=== PATIENT | female | born 1960 | race Caucasian/White ===

== ENCOUNTER → 2021-10-16 | Outpatient (CLI) | payer OTHER ==
[~2021-10-16] MED LIST: CALCIUM 500 +1 EAC5 PO; DICLOFENAC SODI75 MG PO; GABAPENTIN300 MG PO; HYDROCHLOROTHIA25 MG PO; HYDROCODON-ACE1 EAC2 PO; LISINOPRIL20 MG PO; LOPRESSOR 25 MG25 MG PO; OMEPRAZOLE40 MG PO; PREDNISONE5 MG PO; ZYRTEC10 MG PO
== END ==
LOC: HEART 5 15:00
DX: J44.9 Chronic obstructive pulmonary disease, unspecified (principal)
CPT/HCPCS: 94060; 94729

== ENCOUNTER 2021-10-26 22:13 | Emergency (ER) | payer OTHER ==
[2021-10-26 23:53] LABS: HEMOGLOBIN 13.5 gm/dl (12.3-15.3); RED BLOOD COUNT 4.38 M/UL (4.00-5.10); WHITE BLOOD COUNT 15.5 K/UL (4.5-11.0)
[2021-10-27 00:13] LABS: BUN/CREATININE RATIO 15 (0-10)
[2021-10-27] MEDS ORDERED: IBUPROFEN600 MG PO (02:05)
[2021-10-27] MEDS ORDERED: ZOFRAN ODT 4 MG4 MG PO (02:05)
[2021-10-27] MEDS ORDERED: PERCOCET 5/325 T1 EA PO (02:13)
== END 2021-10-27 02:47 | disposition home or self-care (01) ==
LOC: ER1 22:13
PROVIDERS: Physician Assistant
DX: S82.851A Displaced trimalleolar fracture of right lower leg, initial encounter for closed fracture (principal); I11.9 Hypertensive heart disease without heart failure; E11.9 Type 2 diabetes mellitus without complications; Z79.84 Long term (current) use of oral hypoglycemic drugs; Z88.8 Allergy status to other drugs, medicaments and biological substances; W19.XXXA Unspecified fall, initial encounter; Y92.009 Unspecified place in unspecified non-institutional (private) residence as the place of occurrence of the external cause
CPT/HCPCS: 71045; 73502; 73610; 73620; 80053; 85025; 90471; 90715; 96374; 96375; 96376; 99284; J2270; J2405

== ENCOUNTER 2021-11-05 16:01 | Inpatient (IN) | payer OTHER ==
[~2021-11-05] VITALS: Ht 160 cm; Wt 85.3 kg
[~2021-11-05 16:01] MED LIST changes: -GABAPENTIN300 MG PO; +GABAPENTIN400 MG PO; -HYDROCODON-ACE1 EAC2 PO; +HYDROCODON-ACE1 EAC6 PO; +IBUPROFEN600 MG PO; +LISINOPRIL10 MG PO; -LISINOPRIL20 MG PO; +PERCOCET 5/325 T1 EA PO; +ZOFRAN ODT 4 MG4 MG PO
[2021-11-05] MEDS ORDERED: DOXYCYCLINE HY100 M2 PO (16:51)
[2021-11-05] MEDS ORDERED: PROAIR HFA8.5 GM INH (16:52)
[2021-11-05] MEDS ORDERED: SYMBICORT 16010.2 GM INH (16:53)
[2021-11-05] MEDS ORDERED: VITAMIN D21250 MCG PO (16:55)
[2021-11-05] MEDS ORDERED: ALENDRONATE SOD70 MG PO (16:55)
[2021-11-05] MEDS ORDERED: ENBREL50 MG/1 ML SQ (16:56)
[2021-11-05] MEDS ORDERED: ATORVASTATIN CA80 MG PO (16:57)
[2021-11-05] MEDS ORDERED: BRILINTA90 MG PO (16:57)
[2021-11-05] MEDS ORDERED: ASPIRIN EC81 MG PO (16:58)
[2021-11-05] MEDS ORDERED: LEVOTHYROXINE50 MCG PO (16:59)
[2021-11-05] MEDS ORDERED: GLUCOPHAGE 500500 MG PO (16:59)
[2021-11-05] MEDS ORDERED: NITROGLYCERIN0.4 MG SL (17:00)
[2021-11-05 22:28] LABS: HEMOGLOBIN 11.3 gm/dl (12.3-15.3); RED BLOOD COUNT 3.69 M/UL (4.00-5.10); WHITE BLOOD COUNT 9.4 K/UL (4.5-11.0)
[2021-11-05 22:49] LABS: BUN/CREATININE RATIO 16 (0-10)
[2021-11-06 03:20] LABS: HEMOGLOBIN 11.1 gm/dl (12.3-15.3); RED BLOOD COUNT 3.69 M/UL (4.00-5.10); WHITE BLOOD COUNT 9.6 K/UL (4.5-11.0)
[2021-11-06 04:39] LABS: BUN/CREATININE RATIO 21 (0-10)
[2021-11-07 03:32] LABS: HEMOGLOBIN 10.9 gm/dl (12.3-15.3); RED BLOOD COUNT 3.63 M/UL (4.00-5.10)
[2021-11-07 03:35] LABS: BUN/CREATININE RATIO 20 (0-10)
[2021-11-07 03:52] LABS: WHITE BLOOD COUNT 15.9 K/UL (4.5-11.0)
[2021-11-08 07:38] LABS: HEMOGLOBIN 10.1 gm/dl (12.3-15.3); RED BLOOD COUNT 3.34 M/UL (4.00-5.10); WHITE BLOOD COUNT 13.4 K/UL (4.5-11.0)
[2021-11-08 07:44] LABS: BUN/CREATININE RATIO 21 (0-10)
[2021-11-08] MEDS ORDERED: PERCOCET 5/325 T1 EA PO (17:42)
[2021-11-08] MEDS ORDERED: ENOXAPARIN30 MG/0.3 SC (17:42)
--- NOTE | 2021-11-08 18:27 | NUR ---
11/08/21 1820 ATTEMPTED TO CALL REPORT TO [facility]. NO ANSWER AND UNABLE TO LEAVE A MESSAGE
== END 2021-11-08 18:51 | disposition home health service (06) | DRG 494 ==
LOC: M/S 16:01
PROVIDERS: Podiatrist Foot & Ankle Surgery; ADMIT Internal Medicine
PROC: 0QSG04Z Reposition Right Tibia with Internal Fixation Device, Open Approach (ICD-10-PCS; 2021-11-06)
PROC: 0SBF4ZZ Excision of Right Ankle Joint, Percutaneous Endoscopic Approach (ICD-10-PCS; 2021-11-06)
PROC: 0SSF04Z Reposition Right Ankle Joint with Internal Fixation Device, Open Approach (ICD-10-PCS; principal; 2021-11-06 10:45)
DX: S82.851A Displaced trimalleolar fracture of right lower leg, initial encounter for closed fracture (principal); E11.51 Type 2 diabetes mellitus with diabetic peripheral angiopathy without gangrene; I73.9 Peripheral vascular disease, unspecified; I25.10 Atherosclerotic heart disease of native coronary artery without angina pectoris; M06.9 Rheumatoid arthritis, unspecified; E78.5 Hyperlipidemia, unspecified; Z20.822 Contact with and (suspected) exposure to COVID-19; E03.9 Hypothyroidism, unspecified; J30.2 Other seasonal allergic rhinitis; M81.0 Age-related osteoporosis without current pathological fracture; K21.9 Gastro-esophageal reflux disease without esophagitis; E66.9 Obesity, unspecified; G47.33 Obstructive sleep apnea (adult) (pediatric); F42.9 Obsessive-compulsive disorder, unspecified; J44.9 Chronic obstructive pulmonary disease, unspecified; Z95.5 Presence of coronary angioplasty implant and graft; Z87.01 Personal history of pneumonia (recurrent); Z79.82 Long term (current) use of aspirin; Z79.899 Other long term (current) drug therapy; Z79.52 Long term (current) use of systemic steroids; Z86.16 Personal history of COVID-19; I25.2 Old myocardial infarction; Z98.890 Other specified postprocedural states; Z86.718 Personal history of other venous thrombosis and embolism; Z98.51 Tubal ligation status; Z82.49 Family history of ischemic heart disease and other diseases of the circulatory system; Z68.33 Body mass index [BMI] 33.0-33.9, adult
CPT/HCPCS: 36415; 36600; 71045; 73610; 76000; 80053; 81001; 82803; 83036; 83735; 84100; 85025; 85610; 85730; 93005; 94640; 94664; 94760; 97110-GP-CQ; 97162; 97530; 97530-GP-CQ; C1713; C1769; J0171; J0690; J1650; J1885; J2001; J2270; J2370; J2704; J2795; J3370; J3475; J7030; J7120; Q4133; U0002

== ENCOUNTER → 2021-12-02 | Outpatient (CLI) | payer OTHER ==
[~2021-12-02] MED LIST changes: +ALENDRONATE SOD70 MG PO; +ASPIRIN EC81 MG PO; +ATORVASTATIN CA80 MG PO; +BRILINTA90 MG PO; +DOXYCYCLINE HY100 M2 PO; +ENBREL50 MG/1 ML SQ; +ENOXAPARIN30 MG/0.3 SC; +GLUCOPHAGE 500500 MG PO; +LEVOTHYROXINE50 MCG PO; +NITROGLYCERIN0.4 MG SL; +PROAIR HFA8.5 GM INH; +SYMBICORT 16010.2 GM INH; +VITAMIN D21250 MCG PO
== END ==
LOC: KOH-I 13:32
DX: S82.851D Displaced trimalleolar fracture of right lower leg, subsequent encounter for closed fracture with routine healing (principal); X58.XXXD Exposure to other specified factors, subsequent encounter
CPT/HCPCS: 73610

== ENCOUNTER → 2021-12-17 | Outpatient (CLI) | payer OTHER | LOC: KOH-I 15:22 | DX: S82.851A Displaced trimalleolar fracture of right lower leg, initial encounter for closed fracture (principal) | CPT/HCPCS: 73610 ==

== ENCOUNTER → 2021-12-31 | Outpatient (CLI) | payer OTHER | LOC: KOH-I 14:05 | DX: S82.851D Displaced trimalleolar fracture of right lower leg, subsequent encounter for closed fracture with routine healing (principal) | CPT/HCPCS: 73610 ==

== ENCOUNTER → 2022-02-07 | Outpatient (CLI) | payer OTHER ==
[2022-02-11 21:11] LABS: QUANTIFERON MITOGEN VALUE >10.00 IU/mL (.); QUANTIFERON NIL VALUE 0.07 IU/mL (.); QUANTIFERON TB1 AG VALUE 0.09 IU/mL (.); QUANTIFERON TB2 AG VALUE 0.06 IU/mL (.); QUANTIFERON-TB GOLD PLUS Negative (Negative)
== END ==
LOC: LAB 10:41
PROVIDERS: Nurse Practitioner Family
DX: Z79.899 Other long term (current) drug therapy (principal)
CPT/HCPCS: 36415

== ENCOUNTER → 2022-02-13 | Outpatient (CLI) | payer OTHER | LOC: KOH-I 15:05 | DX: S82.841D Displaced bimalleolar fracture of right lower leg, subsequent encounter for closed fracture with routine healing (principal) | CPT/HCPCS: 73610 ==

== ENCOUNTER → 2022-03-03 | Outpatient (CLI) | payer OTHER | LOC: KOH-I 01-31 11:30 | DX: R91.8 Other nonspecific abnormal finding of lung field (principal) | CPT/HCPCS: 71250 ==